=== PATIENT | female | born 1995 | race African-American/Black ===

== ENCOUNTER 2018-04-09 14:16 | Emergency (ER) | payer OTHER ==
[2018-04-09 14:21] VITALS: BMI 30.2
[2018-04-09] MEDS ORDERED: DEXTROSE 5%-LACTATED RINGERS 500 ML IV SCH ×2 (15:30→16:30)
[2018-04-09 16:05] VITALS: BP 115/60; PULSE 73; TEMP 98.3
[2018-04-09 16:52] LABS: URINE APPEARANCE CLEAR; URINE BILIRUBIN NEGATIVE (<2.0 mg/dL); URINE COLOR LTYELLOW; URINE GLUCOSE (UA) NEGATIVE (NEGATIVE); URINE KETONE NEGATIVE (NEGATIVE); URINE LEUK ESTERASE NEGATIVE (NEGATIVE); URINE NITRITE NEGATIVE (NEGATIVE); URINE PROTEIN NEGATIVE (NEGATIVE); URINE UROBILINOGEN NEGATIVE mg/dL (0.2-1.0)
== END 2018-04-09 19:40 | disposition home or self-care (01) ==
LOC: JER 14:16
DX: O26.892 Other specified pregnancy related conditions, second trimester (principal); R10.30 Lower abdominal pain, unspecified; O16.2 Unspecified maternal hypertension, second trimester; Z3A.22 22 weeks gestation of pregnancy
CPT/HCPCS: 76801-TC; 76817-TC; 81003; 99281-25